=== PATIENT | female | born 1960 | race Caucasian/White ===

== ENCOUNTER 2023-08-13 13:47 | Observation (INO) ==
[2023-08-13 15:53] LABS: ABS Basophils 0.1 10^3/uL (0.0-0.1); ABS Eosinophils 0.1 10^3/uL (0.0-0.5); ABS Lymphocytes 2.5 10^3/uL (1.0-4.8); ABS Monocytes 0.8 10^3/uL (0.0-0.9); ABS Nucleated RBC 0.01 10^3/ul; Eosinophil % 1.3 %; Hematocrit 43.9 % (35-45); Hemoglobin 15.1 g/dL (11.5-14.3); Lymphocyte % 29.8 %; Mean Corpuscular Hemoglobin 31.9 pg (27-33); Mean Corpuscular Hgb Conc 34.5 g/dL (31-36); Mean Corpuscular Volume 92.5 fL (80-97); Mean Platelet Volume 7.1 fL (7.5-11.2); Nucleated Red Blood Cells % 0.1 %/100WBC (0.0-0.8); Platelet Count 324 10^3/uL (150-450); Red Blood Count 4.74 10^6/uL (3.63-4.92); White Blood Count 8.5 10^3/uL (3.8-11.8)
[2023-08-13 16:02] LABS: Urine Appearance Clear; Urine Bilirubin Negative (Negative); Urine Blood Negative (Negative); Urine Color Straw; Urine Glucose Negative (Negative); Urine Ketones Negative (Negative); Urine Nitrite Negative (Negative); Urine Protein Negative (Negative); Urine Specific Gravity 1.006 (1.002-1.030); Urine Urobilinogen Negative (Negative)
[2023-08-13 16:12] LABS: Albumin 4.7 g/dL (3.2-5.2); Albumin/Globulin Ratio 1.3 (1-3); C Reactive Protein 64.34 mg/L (<8.01); Calcium 9.9 mg/dL (8.6-10.3); Creatinine, Serum 0.87 mg/dL (0.51-0.95); Globulin 3.6 g/dL (2-4); Potassium 3.7 mmol/L (3.5-5.0); Total Bilirubin 0.6 mg/dL (0.2-1.0); Total Protein 8.3 g/dL (6.4-8.9); eGFR CKD-EPI 75.3 (>60)
[2023-08-13 16:13] LABS: Urine Bacteria 1+ (Absent); Urine Red Blood Cell Absent (Absent); Urine White Blood Cell Trace(0-5/hpf) (Absent)
[2023-08-13] MEDS ORDERED: Lactated Ringers 1000 ml BAG 1,000 ML IV ONE (16:36)
[2023-08-13] MEDS ORDERED: Iohexol 350 (CONTRAST) 500 ML MDV IV ONE (16:41)
[2023-08-13] MEDS ORDERED: Piperacillin/Tazobac 3.375 BAG 3.375 GM/100 ML BAG IV ONE (17:47)
[2023-08-13] MEDS ORDERED: Rocuronium 50 mg VIAL 10 mg/ml 5 ml VIAL (50 mg) ONE (19:41)
[2023-08-13] MEDS ORDERED: Midazolam 2 mg/2 ml VIAL 1 mg/ml 2 ml VIAL (2 mg) ONE (19:41)
[2023-08-13] MEDS ORDERED: fentaNYL 100 mcg/2 ml 50 MCG/ML VIAL ONE (19:41)
[2023-08-13] MEDS ORDERED: Lidocaine 2% PF 5 ML VIAL ONE (19:42)
[2023-08-13] MEDS ORDERED: Ondansetron 4 mg VIAL 2 MG/ML 2 ml VIAL ONE ×2 (19:42→23:14)
[2023-08-13] MEDS ORDERED: Propofol 10 MG/ML 20 ML BTL ONE (19:42)
[2023-08-13] MEDS ORDERED: Dexamethasone IV 4 MG/ML VIAL 1 ml VIAL ONE (19:42)
[2023-08-13 19:50] VITALS: BP 195/113
[2023-08-13] MEDS ORDERED: Acetaminophen IV 1 GM/100ML 1,000 MG/100 ML BAG IV PRN (21:06)
[2023-08-13] MEDS ORDERED: Ondansetron 4 mg VIAL 2 MG/ML 2 ml VIAL IV PRN (21:06)
[2023-08-13] MEDS ORDERED: fentaNYL 100 mcg/2 ml 50 MCG/ML VIAL IV PRN (21:06)
[2023-08-13] MEDS ORDERED: Naloxone 0.4 mg VIAL 0.4 mg/ml 1 ml VIAL IV PRN (21:06)
[2023-08-13] MEDS ORDERED: HYDROmorphone 1 MG/1 ML SYRINGE IV PRN (21:06)
[2023-08-13] MEDS ORDERED: Bupivacaine 0.5% SDV PF 30ML VIAL ONE (21:08)
[2023-08-13] MEDS ORDERED: Lidocaine 1% w EPI 1:200,000 SDV 30 ML VIAL ONE (21:08)
[2023-08-13] MEDS ORDERED: Acetaminophen IV 1 GM/100ML 1,000 MG/100 ML BAG IV ONE (22:37)
== END 2023-08-13 23:59 | disposition home or self-care (01) ==
LOC: ED 13:47 → EDHOLD 13:47 → AA 19:47 → OR 20:04 → AA 20:14
PROVIDERS: ADMIT Surgery; ATTEND Surgery